=== PATIENT | female | born 1955 | race Hispanic/Latino ===

== ENCOUNTER 2024-07-02 09:26 | Emergency (ER) | payer OTHER ==
[~2024-07-02] VITALS: Ht 160 cm; Wt 74.8 kg
[2024-07-02] MEDS ORDERED: BIKTARVY 50-201 EACH PO (10:20)
[2024-07-02] MEDS ORDERED: HEPATITIS B VIRUS VACCINE/PF 10 MCG/0.5 ML SYR IM ONE (10:30)
[2024-07-02] MEDS ORDERED: BICTEGRAV/EMTRICIT/TENOFOV 1 EACH HOME.PACK PO ONE (10:30)
[2024-07-02] MEDS ORDERED: HEPATITIS B IMMUNE GLOBULIN 110 UNIT/0.5 ML IM ONE (10:30)
[2024-07-02] MEDS ORDERED: HEPATITIS B IMMUNE GLOBULIN 5 ML VIAL IM ONE (10:45)
[2024-07-02 10:53] VITALS: BP 164/87
[2024-07-03 08:40] LABS: HEPATITIS B SURFACE ANTIBODY <3.10 IU/L (())
[2024-07-03 10:49] LABS: HEPATITIS C AB CIA INTERP Negative (Negative); HEPATITIS C ANTIBODY CIA INDEX 0.15 IV (())
[2024-07-03 11:50] LABS: HIV 1,2 COMBO ANTIGEN/ANTIBODY Negative (Negative)
== END 2024-07-02 10:55 | disposition home or self-care (01) ==
LOC: ED 09:26
PROVIDERS: Emergency Medicine
DX: S61.236A Puncture wound without foreign body of right little finger without damage to nail, initial encounter (principal); I10 Essential (primary) hypertension; Z77.21 Contact with and (suspected) exposure to potentially hazardous body fluids; W46.1XXA Contact with contaminated hypodermic needle, initial encounter; Y93.E9 Activity, other interior property and clothing maintenance
CPT/HCPCS: 36415; 84460; 86706; 86803; 90371; 90471; 96372; 99282-25

== ENCOUNTER 2024-08-06 18:25 | Emergency (ER) | payer MEDICARE ==
[~2024-08-06] VITALS: Ht 160 cm; Wt 74.9 kg
[~2024-08-06 18:25] MED LIST: BIKTARVY 50-201 EACH PO
[2024-08-06] MEDS ORDERED: ADVIL200 MG (19:10)
[2024-08-06] MEDS ORDERED: LOSARTAN POTAS100 MG (19:10)
[2024-08-06 20:44] LABS: BASOPHILS 0.7 % (0-2); EOSINOPHILS 3.9 % (0-6); HEMATOCRIT 38.1 % (35.0-50.0); HEMOGLOBIN 13.2 g/dL (12.0-18.0); LYMPHOCYTES 41.1 % (24-44); MCH 27.6 (27-36); MCHC 34.7 g/dl (30-36); MCV 79.6 fl (81-99); MONOCYTES 6.2 % (0-12); NEUTROPHILS 48.1 % (39-80); PLATELET COUNT 170 K/uL (140-440); RBC 4.79 M/ul (4.3-5.7); RDW 14.6 (10.5-15.0)
[2024-08-06 20:54] LABS: CORONAVIRUS COVID-19 AG NEGATIVE (NEGATIVE); INFLUENZA A AG NEGATIVE (NEGATIVE); INFLUENZA B AG NEGATIVE (NEGATIVE)
[2024-08-06 20:58] LABS: ALBUMIN 3.7 g/dL (3.4-5.0); ALBUMIN/GLOBULIN RATIO 1.19 (1.1-2.4); ANION GAP 11.4 (7-21); BILIRUBIN, TOTAL 0.3 mg/dL (0.2-1.0); BUN/CREATININE RATIO 17.02 (6.0-28.6); CALCIUM 8.6 mg/dL (8.5-10.1); CREATININE, SERUM 0.94 mg/dL (0.55-1.02); POTASSIUM 3.4 mmol/L (3.5-5.1); PROTEIN, TOTAL 6.8 g/dL (6.4-8.2)
[2024-08-06] MEDS ORDERED: DEXAMETHASONE SOD PHOS 10 MG/ML VIAL PO ONE (21:45)
[2024-08-06] MEDS ORDERED: FLONASE ALLERG9.9 ML NAS (21:45)
[2024-08-06 22:00] VITALS: BP 169/78
[2024-08-06] MEDS ORDERED: ACETAMINOPHEN 500 MG TAB PO ONE (22:00)
== END 2024-08-06 22:05 | disposition home or self-care (01) ==
LOC: ED 18:25
PROVIDERS: Internal Medicine
DX: H69.83 Other specified disorders of Eustachian tube, bilateral (principal); J06.9 Acute upper respiratory infection, unspecified; B97.89 Other viral agents as the cause of diseases classified elsewhere; I10 Essential (primary) hypertension; Z79.899 Other long term (current) drug therapy
CPT/HCPCS: 36415; 80053; 85025; 99284; A9270; J1100